=== PATIENT | female | born 1965 | race Hispanic/Latino ===

== ENCOUNTER → 2025-06-02 | Outpatient (CLI) | payer BC ==
--- NOTE | 2025-06-03 06:33 | HMCIMG ---
EXAM: CR Chest and Left Ribs, 5 views. CLINICAL HISTORY: Cough. COMPARISON: None provided. FINDINGS: The lungs show no infiltrate or other acute findings. No pleural effusion or pneumothorax. The cardiomediastinal silhouette is within normal limits. No acute osseous abnormality. No displaced fracture identified. IMPRESSION: 1. No acute cardiopulmonary pathology is evident. 2. No displaced fracture identified. /[place]
== END | disposition home or self-care (01) ==
LOC: RAH 09:44
PROVIDERS: ATTEND Internal Medicine Cardiovascular Disease
DX: R07.89 Other chest pain (principal)
CPT/HCPCS: 71101